=== PATIENT | female | born 2000 | race Caucasian/White ===

== ENCOUNTER → 2020-04-30 16:27 | Outpatient (CLI) | payer SELFPAY | PROVIDERS: Visit Provider Nurse Practitioner Family | DX: Z34.90 Encounter for supervision of normal pregnancy, unspecified, unspecified trimester (principal) | CPT/HCPCS: 36415; 86900; 86901 ==

== ENCOUNTER 2020-05-02 12:06 | Outpatient (CLI) | payer SELFPAY ==
[2020-05-02 14:51] VITALS: BP 133/72; PULSE 105; RESP 18; O2SAT 96
== END 2020-05-02 14:51 | disposition home or self-care (01) ==
LOC: LAB 12:07 → INF 14:34
PROVIDERS: Visit Provider Obstetrics & Gynecology
DX: Z34.90 Encounter for supervision of normal pregnancy, unspecified, unspecified trimester (principal)
CPT/HCPCS: 36415; 96372; J2790

== ENCOUNTER → 2020-09-18 08:48 | Outpatient (CLI) | payer SELFPAY ==
[2020-09-18 09:24] LABS: Alanine Aminotransferase 34 U/L (12-78); Albumin Level 4.9 g/dl (3.5-5.0); Albumin/Globulin Ratio 1.5 (1.1-1.8); Alkaline Phosphatase 78 U/L (38-126); Anion Gap 16.1 mEq/L (5-15); Aspartate Amino Transferase 33 U/L (14-36); Bilirubin,Total 0.8 mg/dl (0.2-1.3); Blood Urea Nitrogen 7 mg/dl (7-17); Calcium 9.6 mg/dl (8.4-10.2); Carbon Dioxide 25 mmol/L (22.0-30.0); Chloride 104 mmol/L (98-107); Estimated Glomerular Filt Rate 105 ml/min (>60); GFR (African American) 127 ML/MIN (>60); Globulin 3.2 g/dL (1.3-3.2); Glucose 87 mg/dl (74-100); Potassium 4.1 mmoL/L (3.5-5.1); Sodium 141 mmol/L (136-145); Total Protein,Serum 8.1 g/dl (6.3-8.2)
[2020-09-18 09:25] LABS: Basophils % 0.7 % (0.1-2.0); Eosinophils # 0.2 K/mm3 (0.0-0.4); Hematocrit 39.7 % (37.0-47.0); Hemoglobin 12.3 g/dL (12.2-16.2); Lymphocytes # 1.3 K/mm3 (0.7-4.5); Mean Corpuscular Hemoglobin 27.6 pg (27.0-31.2); Mean Corpuscular Volume 88.9 fl (81-99); Mean Platelet Volume 9.7 fl (7.4-10.4); Monocytes # 0.3 K/mm3 (0.1-1.0); Monocytes % 4.8 % (1.7-9.3); Neutrophils # 4.2 K/mm3 (1.8-7.8); Neutrophils % 70.5 % (37.0-80.0); Platelet Count 194 K/mm3 (142-424); Red Blood Count 4.47 M/mm3 (4.20-5.40); Red Cell Distribution Width 15.3 % (11.5-17.5)
[2020-09-18 09:40] LABS: T4 (Thyroxine) 7.6 ug/dl (5.53-11.0)
[2020-09-18 09:54] LABS: Thyroid Stimulating Hormone 0.24 uIU/mL (0.465-4.68)
== END ==
PROVIDERS: Visit Provider Nurse Practitioner Family
DX: R53.83 Other fatigue (principal); R59.9 Enlarged lymph nodes, unspecified; F41.9 Anxiety disorder, unspecified
CPT/HCPCS: 80053; 84436; 84443; 85025

== ENCOUNTER → 2020-09-25 10:01 | Outpatient (CLI) | payer SELFPAY | PROVIDERS: Visit Provider Nurse Practitioner Family | DX: B37.9 Candidiasis, unspecified (principal) | CPT/HCPCS: 87210 ==

== ENCOUNTER 2021-02-17 01:01 | Emergency (ER) | payer SELFPAY ==
[2021-02-17 01:02] VITALS: BP 138/93; PULSE 130; RESP 16; TEMP 36.6; O2SAT 99; BMI 30.7
[2021-02-17 01:27] LABS: Microscopic, Urine URINE MICROSCOPIC (MICROSCOPIC)
[2021-02-17 01:29] LABS: Appearance,Urine CLEAR (Clear); Bilirubin,Urine Negative (Negative); Blood, Urine Negative (Negative); Color,Urine YELLOW (Yellow); Glucose,Urine (UA) Negative (Negative); Ketones,Urine Negative (Negative); Leukocyte Esterase,Urine Negative (Negative); Nitrate,Urine Negative (Negative); Protein,Urine Negative (Negative); Specific Gravity, Urine <= 1.005 (1.005-1.030); Urobilinogen,Urine 0.2 EU/dl (0.2)
[2021-02-17 01:30] VITALS: BP 104/53; PULSE 96; O2SAT 98
[2021-02-17 01:36] LABS: Basophils % 0.5 % (0.1-2.0); Eosinophils # 0.6 K/mm3 (0.0-0.4); Eosinophils % 6.9 % (0.1-12.0); Hematocrit 39.6 % (37.0-47.0); Hemoglobin 13.4 g/dL (12.2-16.2); Lymphocytes # 1.7 K/mm3 (0.7-4.5); Lymphocytes % 20.2 % (10-50); Mean Corpuscular HGB Conc 33.9 g/dL (31.8-35.4); Mean Corpuscular Hemoglobin 29.2 pg (27.0-31.2); Mean Corpuscular Volume 86.3 fl (81-99); Mean Platelet Volume 9.1 fl (7.4-10.4); Monocytes # 0.3 K/mm3 (0.1-1.0); Monocytes % 3.1 % (1.7-9.3); Neutrophils # 5.8 K/mm3 (1.8-7.8); Neutrophils % 69.2 % (37.0-80.0); Platelet Count 153 K/mm3 (142-424); Red Blood Count 4.59 M/mm3 (4.20-5.40); Red Cell Distribution Width 14.7 % (11.5-17.5); White Blood Count 8.4 K/mm3 (4.8-10.8)
[2021-02-17 01:36] LABS: Bacteria,Urine 1+ /lpf; Squamous Epithelial Cell,Urine TNTC #/hpf (0-5)
[2021-02-17 01:42] LABS: Chloride 104 mmol/L (98-107); Sodium 139 mmol/L (136-145)
[2021-02-17 01:43] LABS: Potassium 3.3 mmoL/L (3.5-5.1)
[2021-02-17 01:45] LABS: Alanine Aminotransferase 23 U/L (12-78); Albumin Level 4.5 g/dl (3.5-5.0); Albumin/Globulin Ratio 1.5 (1.1-1.8); Alkaline Phosphatase 59 U/L (38-126); Anion Gap 12.3 mEq/L (5-15); Aspartate Amino Transferase 26 U/L (14-36); Bilirubin,Total 0.5 mg/dl (0.2-1.3); Blood Urea Nitrogen 4 mg/dl (7-17); Carbon Dioxide 26 mmol/L (22.0-30.0); Creatinine Clearance Estimated 238 mL/min (50-200); Estimated Glomerular Filt Rate 153 ml/min (>60); GFR (African American) 185 ML/MIN (>60); Globulin 3.1 g/dL (1.3-3.2); Total Protein,Serum 7.6 g/dl (6.3-8.2)
[2021-02-17 01:46] LABS: Calcium 9.4 mg/dl (8.4-10.2); Glucose 112 mg/dl (74-100)
--- NOTE | 2021-02-17 01:57 | HMH.EDGENADL ---
ED Disposition Clinical Impression: Chronic nasal congestion, Nasal congestion related to Sinusitis Qualifiers: Sinusitis location: maxillary Chronicity: chronic Qualified Code(s): J32.0 - Chronic maxillary sinusitis Qualifiers: Weeks of gestation: 12 weeks Qualified Code(s): Z3A.12 - 12 weeks gestation of Disposition: Home, Self-Care Condition on Discharge: Good Instructions: DI for Sinusitis Prescriptions: Cetirizine HCl [24Hour Allergy] 10 mg PO DAILY 30 Days #30 tab Transmission Status: Pending to [facility] Fluticasone Propionate [Flonase 50mcg nasal spray 16gm] 2 spr NS DAILY #1 bottle Transmission Status: Pending to [facility] Cefdinir [Omnicef 300mg Capsule] 300 mg PO BID #20 cap Transmission Status: Pending to [facility] Sodium Chloride [Saline Nasal Mist] 2 spray NS BID #1 mist Transmission Status: Pending to [facility] Referrals: Terra Fulton APRN [Primary Care Provider] - - Critical Care Critical Care Time: No Attestation: On 02/17/21, the high probability of a clinically significant, sudden or life threatening deterioration of the following system(s) required my full and direct attention, intervention and personal management. The time I documented below is in addition to time spent performing reported procedures but includes the following listed in this critical care notation. Medical Decision Making - Medical Records Medical records reviewed: Yes: I reviewed the patient's medical records. - Soham Inquiry Pt receiving controlled substance: No Vital Signs: 02/17/21 01:02 Temperature 97.9 F Temperature Source Oral Pulse Rate [Right] 130 H Respiratory Rate 16 Blood Pressure [Right Arm] 138/93 H Blood Pressure Mean [Right Arm] 108 02 Sat by Pulse Oximetry 99 - Lab Data Lab Results 02/17/21 01:23: Urine Color Yellow, Urine Appearance Clear, Urine pH 6.0, Ur Specific [place] <= 1.005, Urine Protein Negative, Urine Glucose (UA) Negative, Urine Ketones Negative, Urine Blood Negative, Urine Nitrate Negative, Urine Bilirubin Negative, Urine Urobilinogen 0.2, Ur Leukocyte Esterase Negative, Urine WBC 3-5, Ur Squamous Epith Cells Tntc, Urine Bacteria 1+ 02/17/21 01:29: WBC 8.4, RBC 4.59, Hgb 13.4, Hct 39.6, MCV 86.3, MCH 29.2, MCHC 33.9, RDW 14.7, Plt Count 153, MPV 9.1, Neut % (Auto) 69.2, Lymph % (Auto) 20.2, [place] % (Auto) 3.1, Eos % (Auto) 6.9, Baso % (Auto) 0.5, Neut # (Auto) 5.8, Lymph # (Auto) 1.7, [place] # (Auto) 0.3, Eos # (Auto) 0.6 H, Baso # (Auto) 0.0 02/17/21 01:29: Sodium 139, Potassium 3.3 L, Chloride 104, Carbon Dioxide 26, Anion Gap 12.3, BUN 4 L, Creatinine 0.50 L, Estimated Creat Clear 238, Estimated GFR 153, Est GFR ( Amer) 185, Glucose 112 H, Calcium 9.4, Total Bilirubin 0.5, AST 26, ALT 23, Alkaline Phosphatase 59, Total Protein 7.6, Albumin 4.5, Globulin 3.1, Albumin/Globulin Ratio 1.5 Result diagrams: 02/17/21 01:29 02/17/21 01:29 Orders (Tests/Meds): ED MEDICATIONS Generic Name Dose Route Start Last Admin Trade Name Freq PRN Reason Stop Dose Admin Sodium Chloride 1,000 mls @ 999 mls/hr 02/17/21 01:15 02/17/21 01:22 Sod Chlor 0.9% 1000ml Bag IV 02/17/21 02:15 999 mls/hr .Q1H1M JAQUI Administration Discontinued Medications Generic Name Dose Route Start Last Admin Trade Name Freq PRN Reason Stop Dose Admin Oxymetazoline HCl 1 ml 02/17/21 01:13 02/17/21 01:22 Oxymetazoline Nasal Spur 0.05% 15ml NS 02/17/21 01:14 1 ml ONCE ONE Administration Medical Decision Narrative: 21-year-old female who is otherwise healthy and 12 weeks who presents with nasal congestion for several months. Feels like the congestion is significantly worsening keeping her from sleeping. She used TheraFlu prior to arrival which she was counseled not to use going forward due to the phenylephrine and being in for trimester . She
[2021-02-17 02:18] VITALS: BP 111/77; PULSE 89; RESP 16; TEMP 36.6; O2SAT 99
== END 2021-02-17 02:19 | disposition home or self-care (01) ==
PROVIDERS: Emergency Provider Student in an Organized Health Care Education/Training Program; PCP Nurse Practitioner Family
DX: O99.891 Other specified diseases and conditions complicating pregnancy (principal); J32.0 Chronic maxillary sinusitis; Z3A.12 12 weeks gestation of pregnancy; F41.8 Other specified anxiety disorders
CPT/HCPCS: 80053; 81001; 85025; 96365; 99282

== ENCOUNTER 2021-08-07 19:20 | Emergency (ER) | payer SELFPAY ==
[2021-08-07 19:27] VITALS: BP 147/84; PULSE 129; RESP 22; TEMP 36.7; O2SAT 98; BMI 28.8
--- NOTE | 2021-08-07 19:41 | ECG_ITS ---
APPROVED REPORT Exam: Resting ECG HR:107 bpm ECG Measurements Heart Rate 107 AXES [place] 158 P 43 QRSd 86 QRS 63 QT 303 T 23 QTc 366 Conclusion SINUS TACHYCARDIA NONSPECIFIC T-WAVE ABNORMALITY ABNORMAL RHYTHM ECG UNCONFIRMED REPORT Electronically signed by : Hasmukh Bales MD 08/08/2021 13:45:51
--- NOTE | 2021-08-07 19:47 | XR_ITS ---
PROCEDURE INFORMATION: Exam: XR Chest Exam date and time: 08/07/2021 7:47 PM Age: 21 years old Clinical indication: Chest pressure; Patient HX: Chest pain , PT just had a baby yesterday and pain started while having the baby; Additional info: Chest pain; SOA TECHNIQUE: Imaging protocol: XR of the chest. Views: 1 view. COMPARISON: CR (CHEST AP, CHEST, CXR AP LANDSCAPE) 11/23/2018 1:24 PM FINDINGS: Lungs: Unremarkable. No consolidation. Pleural spaces: No pleural effusion. No pneumothorax. Heart/Mediastinum: Normal heart size. Bones/joints: Unremarkable. IMPRESSION: No acute findings.
--- NOTE | 2021-08-07 19:51 | HMH.EDGENADL ---
ED Disposition Condition on Discharge: Fair - Critical Care Critical Care Time: Yes Total Critical Care Time: 40 Vital system(s) involved:: Circulatory Failure, Respiratory Failure, Shock (Septic) My critical care processes included: Assessment & monitoring of V/S, Initial and Re-exams, Data Review/Interpretation, Coordinating Care, Medication Orders and management, Documentation Comment: Approximately 40 minutes was spent evaluating and reassessing the patient, considerations were given to toxin induced myopathy, pulmonary embolisms, septic shock, and peurpeural sepsis. <Susy Love - Last Filed: 08/07/21 20:44> Condition on Discharge: Good <Garett Joyner - Last Filed: 08/07/21 23:37> Clinical Impression: Tachycardia, complication Chest pain Qualifiers: Chest pain type: chest pain on breathing Qualified Code(s): R07.1 - Chest pain on breathing Disposition: Home, Self-Care Instructions: DI for Atypical Chest Pain Additional Instructions: fluids and return if any problems and see dr florence or pcp for follow up Referrals: Terra Fluton APRN [Primary Care Provider] - Attestation: On 08/07/21, the high probability of a clinically significant, sudden or life threatening deterioration of the following system(s) required my full and direct attention, intervention and personal management. The time I documented below is in addition to time spent performing reported procedures but includes the following listed in this critical care notation. Medical Decision Making - Medical Records Medical records reviewed: Yes: I reviewed the patient's medical records. - Soham Inquiry Pt receiving controlled substance: No - Lab Data Lab results reviewed: Yes: I reviewed the patient's lab results. Result diagrams: 08/07/21 19:45 08/07/21 19:45 <Susy Love - Last Filed: 08/07/21 20:44> - Lab Data Result diagrams: 08/07/21 19:45 08/07/21 19:45 - Radiology Data #1 Image(s): Chest Image Reviewed: Yes I have reviewed radiologist's interpretation Preliminary Findings: Normal/NAD - CT Data CT Scan: Chest Time Received: 23:[address] Reviewed: Yes: I have viewed the radiologist's interpretation Preliminary Findings: Normal/NAD - US Data US Images: Pelvis ED US Reviewed: Yes: I have viewed radiologist's interpretation Preliminary Findings: Normal/NAD - ECG Data Tracing #1 Arrhythmias present: sinus tach Ischemic changes: non-specific ST-T wave changes - Physician Consults Physician Consulted: ludivina Reason -: Pt condition <Garett Joyner - Last Filed: 08/07/21 23:37> Vital Signs: 08/07/21 19:27 08/07/21 20:04 08/07/21 20:30 Temperature 98.0 F Temperature Source Oral Pulse Rate 103 H 95 H Pulse Rate [Apical] 129 H Respiratory Rate 22 Blood Pressure 134/87 149/81 H Blood Pressure [Right Arm] 147/84 H Blood Pressure Mean [Right Arm] 105 Blood Pressure Source [Right Arm] Automatic Cuff Blood Pressure Position [Right Arm] Sitting 02 Sat by Pulse Oximetry 98 97 97 Oxygen Delivery Method Room Air Room Air Room Air 08/07/21 21:00 08/07/21 21:30 Temperature Temperature Source Pulse Rate 92 H 121 H Pulse Rate [Apical] Respiratory Rate Blood Pressure 139/84 122/90 Blood Pressure [Right Arm] Blood Pressure Mean [Right Arm] Blood Pressure Source [Right Arm] Blood Pressure Position [Right Arm] 02 Sat by Pulse Oximetry 96 96 Oxygen Delivery Method Room Air Room Air - Lab Data Lab Results 08/07/21 19:45: WBC 7.2, RBC 3.84 L, Hgb 12.0 L, Hct 37.1, MCV 96.6, MCH 31.1, MCHC 32.2, RDW 14.6, Plt Count 158, MPV 9.6, Neut % (Auto) 70.6, Lymph % (Auto) 19.4, [place] % (Auto) 5.1, Eos % (Auto) 3.5, Baso % (Auto) 1.3, Neut # (Auto) 5.1, Lymph # (Auto) 1.4, [place] # (Auto) 0.4, Eos # (Auto) 0.3, Baso # (Auto) 0.1 08/07/21 19:45: PT 9.8 L, INR 0.86 L, APTT 23.1 08/07/21 19:45: D-Dimer 1.07 H 08/07/21 19:45: Sodium 135 L, Potassium 3.6, Chloride 104,
[2021-08-07 20:03] LABS: Basophils # 0.1 K/mm3 (0-0.2); Basophils % 1.3 % (0.1-2.0); Eosinophils # 0.3 K/mm3 (0.0-0.4); Eosinophils % 3.5 % (0.1-12.0); Hematocrit 37.1 % (37.0-47.0); Lymphocytes # 1.4 K/mm3 (0.7-4.5); Lymphocytes % 19.4 % (10-50); Mean Corpuscular HGB Conc 32.2 g/dL (31.8-35.4); Mean Corpuscular Hemoglobin 31.1 pg (27.0-31.2); Mean Corpuscular Volume 96.6 fl (81-99); Mean Platelet Volume 9.6 fl (7.4-10.4); Monocytes # 0.4 K/mm3 (0.1-1.0); Monocytes % 5.1 % (1.7-9.3); Neutrophils # 5.1 K/mm3 (1.8-7.8); Neutrophils % 70.6 % (37.0-80.0); Platelet Count 158 K/mm3 (142-424); Red Blood Count 3.84 M/mm3 (4.20-5.40); Red Cell Distribution Width 14.6 % (11.5-17.5); White Blood Count 7.2 K/mm3 (4.8-10.8)
[2021-08-07 20:04] VITALS: BP 134/87; PULSE 103; O2SAT 97
[2021-08-07 20:11] LABS: Alanine Aminotransferase 64 U/L (12-78); Albumin Level 3.3 g/dl (3.5-5.0); Albumin/Globulin Ratio 1.2 (1.1-1.8); Alkaline Phosphatase 116 U/L (38-126); Anion Gap 5.6 mEq/L (5-15); Aspartate Amino Transferase 49 U/L (14-36); Bilirubin,Total 0.4 mg/dl (0.2-1.3); Blood Urea Nitrogen 8 mg/dl (7-17); Calcium 8.8 mg/dl (8.4-10.2); Carbon Dioxide 29 mmol/L (22.0-30.0); Chloride 104 mmol/L (98-107); Creatinine Clearance Estimated 224 mL/min (50-200); Estimated Glomerular Filt Rate 153 ml/min (>60); GFR (African American) 185 ML/MIN (>60); Globulin 2.7 g/dL (1.3-3.2); Glucose 103 mg/dl (74-100); Magnesium 1.4 mg/dl (1.6-2.3); Phosphorous 4.3 mg/dl (2.5-4.5); Potassium 3.6 mmoL/L (3.5-5.1); Sodium 135 mmol/L (136-145)
[2021-08-07 20:13] LABS: Activated Partial Thrombo Time 23.1 seconds (22.8-30.6); INR 0.86 (0.9-1.1); Prothrombin Time 9.8 seconds (10.1-12.5)
[2021-08-07 20:21] LABS: D-Dimer 1.07 ug/mL (0.0-0.5)
[2021-08-07 20:23] LABS: Troponin I < 0.01 ng/ml (0.00-0.034)
[2021-08-07 20:30] VITALS: BP 149/81; PULSE 95; O2SAT 97
--- NOTE | 2021-08-07 20:38 | CT_ITS ---
PROCEDURE INFORMATION: Exam: CTA Chest With Contrast Exam date and time: 08/07/2021 8:38 PM Age: 21 years old Clinical indication: Sternal or substernal pain; Additional info: Elevated d-dimer; Tachycardia; Chest pain, PT is 36 hours post TECHNIQUE: Imaging protocol: Computed tomographic angiography of the chest with contrast. 3D rendering (Not supervised by radiologist): MIP and/or 3D reconstructed images were created by the technologist. Radiation optimization: All CT scans at this facility use at least one of these dose optimization techniques: automated exposure control; mA and/or kV adjustment per patient size (includes targeted exams where dose is matched to clinical indication); or iterative reconstruction. Contrast material: ISOVUE 370; Contrast volume: 70 ml; Contrast route: INTRAVENOUS (IV); COMPARISON: CR XR CHEST PORTABLE 08/07/2021 7:57 PM FINDINGS: Pulmonary arteries: No pulmonary emboli. Aorta: No thoracic aortic aneurysm or dissection. Lungs: Minimal dependent atelectasis. No consolidation. No evidence of pneumonia. There are a few scattered pulmonary nodules measuring up to 4 mm in size, presumably benign/reactive in this young patient (no follow-up recommended). Pleural spaces: No pneumothorax. No pleural effusion. Heart: No cardiomegaly. No pericardial effusion. Lymph nodes: Unremarkable. No enlarged lymph nodes. Diaphragm: Small hiatal hernia. Spleen: Partially visualized spleen is enlarged, measuring greater than 13 cm in AP dimension. Bones/joints: Unremarkable. No acute fracture. Soft tissues: Unremarkable. IMPRESSION: 1. No evidence of pulmonary embolus. 2. No acute finding within the thorax. No pneumonia. 3. Nonspecific splenomegaly.
[2021-08-07 20:42] LABS: Thyroid Stimulating Hormone 3.36 uIU/mL (0.465-4.68)
--- NOTE | 2021-08-07 20:43 | US_ITS ---
PROCEDURE INFORMATION: Exam: US Pelvis, Transvaginal Exam date and time: 08/07/2021 8:43 PM Age: 21 years old Clinical indication: Pelvic pain; Additional info: Eval for retained poc; 36h post- TECHNIQUE: Imaging protocol: Real-time transvaginal pelvic ultrasound with image documentation. Transvaginal imaging was used for better evaluation of the endometrium, adnexa, and/or cervix. COMPARISON: ABDPELW/O CT ABD PELVIS W/O CONTRAST 12/22/2016 9:03 AM FINDINGS: Uterus: Uterus measures 13.0 x 7.9 x 11.0 cm, compatible with recent gravid state. Heterogeneous endometrial tissue measuring up to 1.1 cm in thickness. Color flow evaluation of the endometrial tissue not performed. Right ovary/adnexa: Right ovary measures 3.7 x 1.6 x 2.8 cm. Normal color flow present. Left ovary/adnexa: Left ovary measures 4.0 x 2.0 x 2.4 cm. Normal color flow seen within left ovary. Intraperitoneal space: No free fluid is seen in the pelvis. IMPRESSION: Early post-gravid appearance of the uterus. Heterogeneous endometrial tissue is present, measuring up to 1.1 cm in thickness, the exact significance of which is uncertain given delivery only 36 hours prior (ongoing passage of tissue expected in the early phase). Advise a short-term follow-up study within 5-7 days to see if the endometrial tissue resolves.
[2021-08-07 20:44] LABS: Fibrinogen 403 mg/dL (229.9-363.5); Uric Acid 3.2 mg/dl (2.5-6.2)
[2021-08-07 20:48] LABS: Free T4 (Free Thyroxine) 0.91 ng/dl (0.78-2.19)
[2021-08-07 21:00] VITALS: BP 139/84; PULSE 92; O2SAT 96
[2021-08-07 21:04] LABS: C-Reactive Protein 11.3 mg/L (0-4)
[2021-08-07 21:14] LABS: Erythrocyte Sedimentation Rate 48 mm/hr (0-20)
[2021-08-07 21:18] LABS: Procalcitonin 0.044 ng/mL (0.0-2.0)
[2021-08-07 21:30] VITALS: BP 122/90; PULSE 121; O2SAT 96
--- NOTE | 2021-08-07 23:31 | PC.NURSE ---
timothy on phone with dr florence @ this time
--- NOTE | 2021-08-07 23:33 | PC.NURSE ---
on phone consulting with regarding patient condition.
[2021-08-07 23:41] VITALS: BP 115/84; PULSE 94; RESP 20; TEMP 36.7; O2SAT 96
[2021-08-09 08:19] LABS: Homocyst(e)ine 4.6 umol/L (0.0-14.5)
--- NOTE | 2021-08-09 09:44 | PC.NURSE ---
Attempted to call all numbers listed in patient's chart per Dr. Joyner's request related to her prelim positive blood culture results. No one answered at any of the numbers listed. Notified Dr. Joyner
[2021-08-10 15:11] LABS: Anti-Thrombin III Antigen 71 % (72-124); Antithrombin Activity 106 % (75-135); Factor VIII Activity 171 % (56-140); Protein C Functional 157 % (73-180); Protein S, Free 70 % (61-136); Protein S, Total 54 % (60-150); Protein S-Functional 46 % (63-140)
[2021-08-12 04:03] LABS: Protein C Antigen 120 % (60-150)
== END 2021-08-07 23:43 | disposition home or self-care (01) ==
PROVIDERS: Emergency Medicine; Emergency Provider Emergency Medicine; PCP Nurse Practitioner Family
DX: O86.04 Sepsis following an obstetrical procedure (principal); A40.1 Sepsis due to streptococcus, group B; R07.1 Chest pain on breathing; R06.02 Shortness of breath; R00.0 Tachycardia, unspecified; F41.8 Other specified anxiety disorders
CPT/HCPCS: 71045; 71275; 76830; 80053; 81241; 83090; 83735; 84100; 84145; 84439; 84443; 84484; 84550; 85025; 85240; 85300; 85301; 85302; 85305; 85306; 85378; 85384; 85610; 85651; 85730; 86140; 86148; 87040; 87077; 87186; 93005; 96365; 96375; 99283; Q9967

== ENCOUNTER 2021-08-10 15:38 | Outpatient (CLI) | payer SELFPAY ==
[2021-08-10 15:55] VITALS: BP 154/62; PULSE 81; RESP 18; TEMP 37.1; O2SAT 96
[2021-08-10 16:25] VITALS: BP 133/68; PULSE 80; RESP 18; O2SAT 97
[2021-08-10 16:55] VITALS: BP 130/71; PULSE 80; RESP 18; O2SAT 97
[2021-08-10 17:40] VITALS: BP 126/79; PULSE 76; RESP 18; O2SAT 98
== END 2021-08-10 17:47 | disposition home or self-care (01) ==
LOC: INF 15:39
PROVIDERS: PCP Nurse Practitioner Family; Visit Provider Nurse Practitioner Obstetrics & Gynecology
DX: R10.30 Lower abdominal pain, unspecified (principal)
CPT/HCPCS: 96365; J1956

== ENCOUNTER 2021-08-12 12:48 | Observation (INO) | payer SELFPAY ==
[2021-08-12 13:01] VITALS: BMI 32.4
[2021-08-12 13:39] LABS: Coronavirus 19, PCR Not Detected (NotDetected); Influenza A, PCR Not Detected (NotDetected); Influenza B, PCR Not Detected (NotDetected)
--- NOTE | 2021-08-12 14:01 | HMH.HP ---
*Admission Date: 08/12/21 *Chief complaint: Feeling unwell . Diarrhea *History of present illness: She is a 21-year-old 3 para 3 who is about a week now. She was seen in the ER 2 days and was found to be slightly tachycardic and feeling unwell. She had complained of some chest pain and lower abdominal pain. She had been worked up for a pulmonary embolus which was negative she did have blood cultures drawn and they have subsequently grown out Streptococcus. It is sensitive to clindamycin. She has been on Levaquin for the last 48 hours. She received 1 dose of IV antibiotics followed by oral antibiotics. She says that she still just feels unwell despite this. She has had diarrhea for the last 24 hours and she thinks it might be as result of the antibiotics. She says she just feels puny. She is breast-feeding. [facility] History I have reviewed the patient's past medical history: Yes Medical History: Reports:: Anxiety, Depression, Seizures *Have you ever received a pneumonia vaccine?: No *Have you received a flu vaccine this season?: No Other Surgeries: Yes: No Previous Surgery Amputation: No Fractures: No - *Social History Smoking Status: Never smoker Alcohol Intake: never Alcohol Intake Frequency:: other Substance Use Type: denies use *Occupational Status:: unemployed Housing: house Household Members: spouse, children *Travel in the last 8 weeks: None - Psychiatric History Pschychiatric History:: Reports:: Anxiety, Depression Family Hx:: No significant family history Review of Systems - Review of Systems Review of systems:: pertinent systems reviewed and negative unless documented below Meds Home Medications Medication Instructions Recorded Confirmed Type Sertraline HCl [Zoloft] 25 mg PO DAILY 08/10/21 08/12/21 History levoFLOXacin [Levofloxacin] 500 mg PO DAILY 08/10/21 08/12/21 History Allergies Allergy/AdvReac Type Severity Reaction Status Date / Time trazodone [TRAZODONE] Allergy Intermediate Verified 08/12/21 11:43 Exam I & O for Last 24 hours: Intake & Output 08/10/21 08/11/21 08/12/21 08/13/21 11:59 11:59 11:59 11:59 Weight 201 lb - Constitutional no acute distress - *Routine HEENT Exam Head: Present: normocephalic Eye: Present: EOMI, PERRL ENT: Present: mucous membranes moist - *Routine Neck Exam Present: supple, full ROM - *Routine Respiratory Exam Absent: accessory muscle use (good air entry bilaterally), wheezes, crackles - *Routine Cardiovascular Exam Present: RRR. Absent: murmur - *Routine Abdominal Exam Present: soft, normoactive bowel sounds. Absent: tenderness, rebound, guarding, mass - *Routine Rectal Exam Rectal:: deferred - *Routine Genitalia Exam Genitalia:: deferred - *Routine Extremities Exam Present: full ROM. Absent: cyanosis, edema, calf tenderness - *Routine Skin Exam Present: intact (good color) - *Routine Neurological Exam Present: alert, oriented X3 - Routine Psychiatric Exam Present: normal affect - Detailed Rectal Exam Patient deferred: visual exam, digital exam - Detailed Exam Patient deferred: external exam, groin exam, perineal exam Assessment and Plan (1) Streptococcus infection Status: Acute Category: Medical Code(s): A49.1 - Streptococcal infection, unspecified site (2) Tachycardia Status: Acute Category: Medical Code(s): R00.0 - Tachycardia, unspecified - Assessment and plan all Dx Assessment and Plan for all problems:: She has lost some weight in the last few days. She has diarrhea. She is somewhat dehydrated I believe. We will go ahead and admit her and start some IV fluids. Her strep in her blood is sensitive to clindamycin so we will start this. We will give her Imodium for diarrhea. We will check her blood counts as well as her electrolytes. We will plan to admit her at least overnight. I have spoken with the Terra Fulton and she will see the angela
[2021-08-12 14:23] LABS: Basophils % 0.6 % (0.1-2.0); Eosinophils # 0.1 K/mm3 (0.0-0.4); Hematocrit 36.8 % (37.0-47.0); Hemoglobin 11.9 g/dL (12.2-16.2); Lymphocytes # 1.1 K/mm3 (0.7-4.5); Lymphocytes % 15.6 % (10-50); Mean Corpuscular HGB Conc 32.4 g/dL (31.8-35.4); Mean Corpuscular Hemoglobin 30.5 pg (27.0-31.2); Mean Corpuscular Volume 94.1 fl (81-99); Mean Platelet Volume 9.5 fl (7.4-10.4); Monocytes # 0.3 K/mm3 (0.1-1.0); Monocytes % 4.1 % (1.7-9.3); Neutrophils # 5.3 K/mm3 (1.8-7.8); Neutrophils % 77.8 % (37.0-80.0); Platelet Count 185 K/mm3 (142-424); Red Blood Count 3.91 M/mm3 (4.20-5.40); Red Cell Distribution Width 14.3 % (11.5-17.5); White Blood Count 6.9 K/mm3 (4.8-10.8)
[2021-08-12 14:28] LABS: Chloride 106 mmol/L (98-107)
[2021-08-12 14:29] LABS: Potassium 3.9 mmoL/L (3.5-5.1); Sodium 137 mmol/L (136-145)
[2021-08-12 14:31] LABS: Alanine Aminotransferase 37 U/L (12-78); Aspartate Amino Transferase 49 U/L (14-36); Blood Urea Nitrogen 9 mg/dl (7-17); Creatinine Clearance Estimated 210 mL/min (50-200); Estimated Glomerular Filt Rate 124 ml/min (>60); GFR (African American) 150 ML/MIN (>60)
[2021-08-12 14:32] LABS: Albumin Level 3.6 g/dl (3.5-5.0); Albumin/Globulin Ratio 1.2 (1.1-1.8); Alkaline Phosphatase 90 U/L (38-126); Anion Gap 9.9 mEq/L (5-15); Bilirubin,Total 0.6 mg/dl (0.2-1.3); Calcium 8.6 mg/dl (8.4-10.2); Carbon Dioxide 25 mmol/L (22.0-30.0); Globulin 2.9 g/dL (1.3-3.2); Glucose 108 mg/dl (74-100); Total Protein,Serum 6.5 g/dl (6.3-8.2)
[2021-08-12 15:34] VITALS: BP 118/62; PULSE 96; RESP 18; TEMP 36.6; O2SAT 98
[2021-08-12 15:36] LABS: C-Reactive Protein 15.8 mg/L (0-4)
--- NOTE | 2021-08-12 15:42 | PC.NURSE ---
Admission assessment complete. Pt resting quietly in bed with and baby at bs. Baby asleep in crib. Denies any needs at this time. Denies any pain. Was able to collect and send stool specimen for testing. IV infusing at 150ml/hr via pump. Denies any needs or questions at this time.
[2021-08-12 15:49] LABS: Procalcitonin < 0.030 ng/mL (0.0-2.0)
[2021-08-12 15:50] LABS: Adenovirus F 40/41, stool Not Detected (NotDetected); Astrovirus Not Detected (NotDetected); Campylobacter Not Detected (NotDetected); Clostridium Difficile A/B, PCR Not Detected (NotDetected); Cryptosporidium Not Detected (NotDetected); Cyclospora Cayetanesis Not Detected (NotDetected); Entamoeba histolytica Not Detected (NotDetected); Enteroaggregative E coli Not Detected (NotDetected); Enteropathogenic E coli Not Detected (NotDetected); Enterotoxigenic E coli Not Detected (NotDetected); Giardia lamblia Not Detected (NotDetected); Norovirus Not Detected (NotDetected); Plesimonas Shigalloides, PCR Not Detected (NotDetected); Rotavirus A Not Detected (NotDetected); Salmonella, PCR Not Detected (NotDetected); Sapovirus Not Detected (NotDetected); Shiga-like toxin E coli Not Detected (NotDetected); Shigella Enterovasive E coli Not Detected (NotDetected); Vibrio Cholerae Not Detected (NotDetected); Vibrio, PCR Not Detected (NotDetected); Yersinia Entercolitica, PCR Not Detected (NotDetected)
[2021-08-12 15:53] LABS: Erythrocyte Sedimentation Rate 41 mm/hr (0-20)
--- NOTE | 2021-08-12 19:21 | PC.NURSE ---
Report to LEANN Wallace.
[2021-08-12 20:00] VITALS: BP 119/65; PULSE 103; RESP 18; TEMP 36.8; O2SAT 98
[2021-08-13 03:29] VITALS: BP 127/73; PULSE 74; RESP 16; TEMP 37; O2SAT 98
--- NOTE | 2021-08-13 05:13 | PC.NURSE ---
Pt has rested comfortably this shift, BLT lungs CTA, bowel sounds present in all 4 quadrants, pt is on Ra, IV patent and infusing well, pt reports no loose bowel movements tonight. Pt reports feeling a little bit better. Pt denies headache, SOA, N/V, or any pain. VSS
[2021-08-13 07:33] LABS: Basophils % 0.5 % (0.1-2.0); Eosinophils # 0.2 K/mm3 (0.0-0.4); Eosinophils % 4.7 % (0.1-12.0); Hematocrit 35.6 % (37.0-47.0); Hemoglobin 11.6 g/dL (12.2-16.2); Lymphocytes # 1.3 K/mm3 (0.7-4.5); Lymphocytes % 26.1 % (10-50); Mean Corpuscular HGB Conc 32.5 g/dL (31.8-35.4); Mean Corpuscular Hemoglobin 30.5 pg (27.0-31.2); Monocytes # 0.3 K/mm3 (0.1-1.0); Monocytes % 5.1 % (1.7-9.3); Neutrophils # 3.3 K/mm3 (1.8-7.8); Neutrophils % 63.7 % (37.0-80.0); Platelet Count 178 K/mm3 (142-424); Red Blood Count 3.79 M/mm3 (4.20-5.40); Red Cell Distribution Width 14.2 % (11.5-17.5); White Blood Count 5.1 K/mm3 (4.8-10.8)
[2021-08-13 07:53] LABS: Anion Gap 7.7 mEq/L (5-15); Blood Urea Nitrogen 9 mg/dl (7-17); Calcium 8.3 mg/dl (8.4-10.2); Carbon Dioxide 27 mmol/L (22.0-30.0); Chloride 106 mmol/L (98-107); Creatinine Clearance Estimated 210 mL/min (50-200); Estimated Glomerular Filt Rate 124 ml/min (>60); GFR (African American) 150 ML/MIN (>60); Glucose 91 mg/dl (74-100); Potassium 3.7 mmoL/L (3.5-5.1); Sodium 137 mmol/L (136-145)
[2021-08-13 08:00] VITALS: BP 135/74; PULSE 77; RESP 18; TEMP 36.8; O2SAT 99
--- NOTE | 2021-08-13 09:10 | HMH.DCSUM ---
General - General Admission date:: 08/12/21 Discharge date: 08/13/21 HPI HPI: She is a 21-year-old 3 para 3 who is about a week now. She was seen in the ER 2 days and was found to be slightly tachycardic and feeling unwell. She had complained of some chest pain and lower abdominal pain. She had been worked up for a pulmonary embolus which was negative she did have blood cultures drawn and they have subsequently grown out Streptococcus. It is sensitive to clindamycin. She has been on Levaquin for the last 48 hours. She received 1 dose of IV antibiotics followed by oral antibiotics. She says that she still just feels unwell despite this. She has had diarrhea for the last 24 hours and she thinks it might be as result of the antibiotics. She says she just feels puny. She is breast-feeding. Hospital Course Hospital Course: She was admitted and given some IV fluids. She has done well over the last 24 hours. She denies any fever or chills. Her blood counts are normal. She is not tachycardic. She denies any chest pain or shortness of breath. She still has some slight uterine tenderness but it is much better than it was. We have been giving her IV clindamycin. She was seen by Dr. Melendez and Terra Fulton and they agree that she can be discharged home. She does have some help at home. She is Bah[place]. We will give her a prescription for clindamycin 300 mg 3 times daily since she was having problems with the Levaquin. The culture from her blood showed that the Streptococcus para sanguinous was sensitive to clindamycin. She will follow up with Dr. Melendez and with me if she has any further problems. I have encouraged her to continue with her vitamins and iron tablets. Her condition on discharge is stable and improved. Objective Vital signs: Temp Pulse Resp BP Pulse Ox 98.2 F 77 18 135/74 99 08/13/21 08:00 08/13/21 08:00 08/13/21 08:00 08/13/21 08:00 08/13/21 08:00 no acute distress - *Routine HEENT Exam Head: Present: normocephalic Eye: Present: EOMI, PERRL ENT: Present: mucous membranes moist - *Routine Neck Exam Present: supple - *Routine Respiratory Exam Present: CTA bilaterally - *Routine Cardiovascular Exam Present: RRR - *Routine Abdominal Exam Present: soft, normoactive bowel sounds. Absent: tenderness - *Routine Extremities Exam Absent: cyanosis, clubbing, edema Results Labs on day of discharge: Labs from last 24 hours 08/13/21 08/13/21 08/12/21 07:17 07:17 15:40 WBC 5.1 D RBC 3.79 L Hgb 11.6 L Hct 35.6 L MCV 94.0 MCH 30.5 MCHC 32.5 RDW 14.2 Plt Count 178 MPV 9.0 Neut % (Auto) 63.7 Lymph % (Auto) 26.1 [place] % (Auto) 5.1 Eos % (Auto) 4.7 Baso % (Auto) 0.5 Neut # (Auto) 3.3 Lymph # (Auto) 1.3 [place] # (Auto) 0.3 Eos # (Auto) 0.2 Baso # (Auto) 0.0 ESR Sodium 137 Potassium 3.7 Chloride 106 Carbon Dioxide 27 Anion Gap 7.7 BUN 9 Creatinine 0.60 Estimated Creat Clear 210 Estimated GFR 124 Est GFR ( Amer) 150 Glucose 91 Calcium 8.3 L Total Bilirubin AST ALT Alkaline Phosphatase C-Reactive Protein Total Protein Albumin Globulin Albumin/Globulin Ratio Procalcitonin Stl Aeromonas (PCR) Not detected Stl C. cayetanensis PCR Not detected Stool Rotavirus (PCR) Not detected Stl Adenov F 40/41 PCR Not detected Stool Astrovirus (PCR) Not detected Stool Campylobacter PCR Not detected Stl C.difficile Tox PCR Not detected Stool Cryptosporidium PCR Not detected Stl E.coli Shiga Tox PCR Not detected Stool E coli O157 PCR Not detected Stl Enterotoxigenic E PCR Not detected Stool EPEC (PCR) Not detected Stool EAEC (PCR) Not detected Stl E. histolytica PCR Not detected Stool Giardia Lamblia PCR Not detected Stool Salmonella PCR Not detected Sto
--- NOTE | 2021-08-13 09:41 | PC.NURSE ---
0940 Discharge education provided to pt, questions encouraged and answered.
--- NOTE | 2021-08-13 09:47 | HMH.CONS ---
*Admission Date: 08/12/21 *Reason for consult:: blood stream infection *History of present illness: 21 yr old female presented to [facility] office after being seen in ed a couple days , now is a week . Pt had a healthy baby girl at home with a technology director. She was seen in the ER 2 days and was found to be slightly tachycardic and feeling unwell. She had complained of some chest pain and lower abdominal pain.She had been worked up for a pulmonary embolus which was negative she did have blood cultures drawn and they have subsequently grown out Streptococcus. It is sensitive to clindamycin. She has been on Levaquin for the last 48 hours but was not able to tolerate due to nausea and vomiting. She received 1 dose of IV Levaquin antibiotics followed by oral Levaquin. She says that she still just feels unwell despite this. She has had diarrhea for the last 24 hours and she thinks it might be as result of the antibiotics. She says she just feels puny. She is breast-feeding. Pt was admitted for iv fluids and change in antibiotics and monitoring. This am pt states she is feeling better just a little tired. labs wnl and pt able to eat and drink well. pt states she has help at home and feels well enough to go home. ok to dc from pcp point [facility] History I have reviewed the patient's past medical history: Yes Medical History: Reports:: Anxiety, Depression, Seizures *Have you ever received a pneumonia vaccine?: No *Have you received a flu vaccine this season?: No Other Surgeries: Yes: No Previous Surgery Amputation: No Fractures: No - *Social History Smoking Status: Never smoker Alcohol Intake: never Alcohol Intake Frequency:: other Substance Use Type: denies use *Occupational Status:: unemployed Housing: house Household Members: spouse, children *Travel in the last 8 weeks: None - Psychiatric History Pschychiatric History:: Reports:: Anxiety, Depression Family Hx:: No significant family history Review of Systems - Review of Systems Review of systems:: pertinent systems reviewed and negative unless documented below - Constitutional Reports fatigue, Denies body ache(s), Denies fever(s), Denies weakness, Denies weight gain - Eyes Denies change in vision - ENT Denies dizziness - *Cardiovascular Denies chest pain at rest - *Respiratory Denies chest congestion - *Gastrointestinal Denies abdominal pain, Denies nausea, Denies vomiting - *Genitourinary Denies urinary urgency - *Musculoskeletal Denies joint pain - Integumentary/Breasts Denies rash - *Neurologic Reports weakness, Denies dizziness, Denies headache(s), Denies numbness - Psychiatric Denies lack of enjoyment - Endocrine Denies flushing - Hematologic/Lymphatic Denies easy bruising - Allergic/Immunologic Denies itchy eyes Meds Home Medications Medication Instructions Recorded Confirmed Type Sertraline HCl [Zoloft] 25 mg PO DAILY 08/10/21 08/12/21 History clindamycin HCL [Clindamycin HCl] 300 mg PO TID #24 cap 08/13/21 Rx Allergies Allergy/AdvReac Type Severity Reaction Status Date / Time trazodone [TRAZODONE] Allergy Intermediate Verified 08/12/21 11:43 Exam Vital signs and Labs for Last 24 Hours: Temp Pulse Resp BP Pulse Ox 98.2 F 77 18 135/74 99 08/13/21 08:00 08/13/21 08:00 08/13/21 08:00 08/13/21 08:00 08/13/21 08:00 Laboratory Results - last 24 hr 08/12/21 13:15: WBC 6.9, RBC 3.91 L, Hgb 11.9 L, Hct 36.8 L, MCV 94.1, MCH 30.5, MCHC 32.4, RDW 14.3, Plt Count 185, MPV 9.5, Neut % (Auto) 77.8, Lymph % (Auto) 15.6, Benson % (Auto) 4.1, Eos % (Auto) 2.0, Baso % (Auto) 0.6, Neut # (Auto) 5.3, Lymph # (Auto) 1.1, Benson # (Auto) 0.3, Eos # (Auto) 0.1, Baso # (Auto) 0.0 08/12/21 13:15: Sodium 137, Potassium 3.9, Chloride 106, Carbon Dioxide 25, Anion Gap 9.9, BUN 9, Creatinine 0.60, Estimated Creat Clear 210, Estimated GFR 124, Est GFR ( Amer) 150, Glucose 108 H, Calcium 8.6, Total Bilirubin
== END 2021-08-13 09:45 | disposition home or self-care (01) ==
PROVIDERS: Admitting Provider Nurse Practitioner Obstetrics & Gynecology; PCP Nurse Practitioner Family; Visit Provider Nurse Practitioner Obstetrics & Gynecology
DX: O99.893 Other specified diseases and conditions complicating puerperium (principal); R78.81 Bacteremia; E86.9 Volume depletion, unspecified; B95.1 Streptococcus, group B, as the cause of diseases classified elsewhere; B95.4 Other streptococcus as the cause of diseases classified elsewhere; O99.43 Diseases of the circulatory system complicating the puerperium; Z20.822 Contact with and (suspected) exposure to COVID-19
CPT/HCPCS: 36415; 80048; 80053; 84145; 85025; 85651; 86140; 87507; C9803; G0378; U0003; U0005

== ENCOUNTER 2022-07-29 23:32 | Outpatient (CLI) | payer SELFPAY ==
[2022-07-29 23:36] VITALS: BMI 32.3
[2022-07-30 00:04] LABS: Microscopic, Urine URINE MICROSCOPIC (MICROSCOPIC)
[2022-07-30 00:16] LABS: Appearance,Urine CLEAR (Clear); Bilirubin,Urine Negative (Negative); Blood, Urine Negative (Negative); Color,Urine YELLOW (Yellow); Glucose,Urine (UA) Negative (Negative); Ketones,Urine TRACE (Negative); Leukocyte Esterase,Urine 1+ (Negative); Nitrate,Urine Negative (Negative); Protein,Urine Negative (Negative); Urobilinogen,Urine 0.2 EU/dl (0.2)
[2022-07-30 00:28] LABS: Barbiturates Screen,Urine Negative ng/ml (<200)
[2022-07-30 00:29] LABS: Benzodiazepines Screen,Urine Negative ng/ml (<200)
[2022-07-30 00:30] LABS: Amphetamine/Metha Screen,Urine Negative ng/ml (<1000); Cannabinoid Screen,Urine Negative ng/ml (<50)
[2022-07-30 00:31] LABS: Cocaine Screen,Urine Negative ng/ml (<300); Methadone Screen,Urine Negative ng/ml (<300)
[2022-07-30 00:32] LABS: Opiate Screen,Urine Negative ng/ml (<300)
[2022-07-30 00:33] LABS: Phencyclidine Screen,Urine Negative ng/ml (<25)
== END 2022-07-30 00:54 | disposition home or self-care (01) ==
LOC: OBOUT 23:33 → OB 23:33
PROVIDERS: PCP Family Medicine; Visit Provider Nurse Practitioner Obstetrics & Gynecology
DX: O47.03 False labor before 37 completed weeks of gestation, third trimester (principal); Z3A.28 28 weeks gestation of pregnancy
CPT/HCPCS: 59025; 80305; 81001; 87086

== ENCOUNTER 2022-07-31 08:56 | Outpatient (CLI) | payer SELFPAY ==
[2022-07-31 09:19] VITALS: BMI 32.9
[2022-07-31 09:57] VITALS: BP 118/67; PULSE 103; RESP 16; TEMP 36.8; O2SAT 98; BMI 32.9
[2022-07-31 10:46] LABS: Microscopic, Urine URINE MICROSCOPIC (MICROSCOPIC)
[2022-07-31 10:48] LABS: Appearance,Urine CLEAR (Clear); Bilirubin,Urine Negative (Negative); Blood, Urine Negative (Negative); Color,Urine YELLOW (Yellow); Glucose,Urine (UA) Negative (Negative); Ketones,Urine Negative (Negative); Leukocyte Esterase,Urine 1+ (Negative); Nitrate,Urine Negative (Negative); Protein,Urine Negative (Negative); Specific Gravity, Urine <= 1.005 (1.005-1.030); Urobilinogen,Urine 0.2 EU/dl (0.2)
[2022-07-31 10:56] LABS: Bacteria,Urine Trace /lpf
[2022-07-31 11:00] LABS: Amphetamine/Metha Screen,Urine Negative ng/ml (<1000)
[2022-07-31 11:01] LABS: Barbiturates Screen,Urine Negative ng/ml (<200)
[2022-07-31 11:02] LABS: Cannabinoid Screen,Urine Negative ng/ml (<50)
[2022-07-31 11:03] LABS: Cocaine Screen,Urine Negative ng/ml (<300); Methadone Screen,Urine Negative ng/ml (<300)
[2022-07-31 11:04] LABS: Opiate Screen,Urine Negative ng/ml (<300); Phencyclidine Screen,Urine Negative ng/ml (<25)
[2022-07-31 11:11] LABS: Benzodiazepines Screen,Urine Negative ng/ml (<200)
--- NOTE | 2022-07-31 11:13 | US_ITS ---
PROCEDURE INFORMATION: Exam: US After First Trimester, Transabdominal Exam date and time: 07/31/2022 12:43 PM Age: 22 years old Clinical indication: Other: Lbp, rufus flank pain, abd pain; Gestational age or lmp: 29weeks; ; Additional info: Low back and low abdominal pain, bilat flank pain TECHNIQUE: Imaging protocol: Real-time transabdominal obstetrical ultrasound of the maternal pelvis and a second or third trimester with image documentation. Total images: 422 COMPARISON: ABDPELW/O CT ABD PELVIS W/O CONTRAST 12/22/2016 9:03 AM FINDINGS: Gestation: Single living intrauterine gestation. heart rate: heart rate recorded to be 155 bpm. presentation: Breech presentation. Placenta: Anterior placenta grade 1. Amniotic fluid: Amniotic fluid is normal for gestational age. Amniotic fluid index: MAXI is 11.4 cm. BIOMETRY: Gestational age (AUA): Average gestational age 28 weeks 3 days. Estimated due date (AUA): Estimated date of delivery 10/20/2022. Estimated weight: Estimated weight 1239 g. Estimated weight percentile: Estimated weight percentile (LMP) 21%. Biparietal diameter (BPD): BPD 6.8 cm, 27 weeks 4 days Head circumference (HC): HC 26.1 cm, 28 weeks 3 days Abdominal circumference (AC): AC 24.3 cm, 28 weeks 5 days Femur length (FL): FL 5.4 cm, 28 weeks 5 days MATERNAL: Uterus: Unremarkable. Cervix: Cervical length 3.6 cm. Right ovary/adnexa: Obscured by lack of adequate acoustic window. Left ovary/adnexa: Obscured by lack of adequate acoustic window. Intraperitoneal space: No intraperitoneal free fluid. IMPRESSION: 1. Single living intrauterine gestation. 2. Average gestational age 28 weeks 3 days. 3. heart rate recorded to be 155 bpm.
--- NOTE | 2022-07-31 11:13 | US_ITS ---
PROCEDURE INFORMATION: Exam: US Retroperitoneal; Complete; Kidneys and Bladder Exam date and time: 07/31/2022 1:15 PM Age: 22 years old Clinical indication: Abdominal pain; Acute; ; Additional info: Low back and low abdominal pain, bilat flank pain TECHNIQUE: Imaging protocol: Real-time ultrasound of the retroperitoneum with image documentation. Complete exam focused on the kidneys and bladder. Total images: 35 COMPARISON: US OB >= 14 WEEKS FETUS 07/31/2022 12:43 PM FINDINGS: Right kidney: Right kidney measures 11.1 x 4.8 x 6.6 cm. Left kidney: Left kidney measures 11.6 x 5.6 x 5.4 cm. Spleen: Spleen measures 15.4 cm. Urinary bladder: Unremarkable. IMPRESSION: 1. No renal calcifications, obstructive uropathy or masses. 2. Spleen measures 15.4 cm.
[2022-07-31 11:55] LABS: Basophils % 0.5 % (0.1-2.0); Eosinophils # 0.2 K/mm3 (0.0-0.4); Eosinophils % 2.2 % (0.1-12.0); Hematocrit 35.6 % (37.0-47.0); Hemoglobin 11.9 g/dL (12.2-16.2); Lymphocytes % 15.2 % (10-50); Mean Corpuscular HGB Conc 33.4 g/dL (31.8-35.4); Mean Corpuscular Hemoglobin 30.6 pg (27.0-31.2); Mean Corpuscular Volume 91.6 fl (81-99); Mean Platelet Volume 8.7 fl (7.4-10.4); Monocytes # 0.3 K/mm3 (0.1-1.0); Neutrophils # 5.1 K/mm3 (1.8-7.8); Neutrophils % 78.1 % (37.0-80.0); Platelet Count 192 K/mm3 (142-424); Red Blood Count 3.89 M/mm3 (4.20-5.40); Red Cell Distribution Width 13.3 % (11.5-17.5); White Blood Count 6.6 K/mm3 (4.8-10.8)
[2022-07-31 12:00] LABS: Chloride 105 mmol/L (98-107); Sodium 137 mmol/L (136-145)
[2022-07-31 12:03] LABS: Alanine Aminotransferase 22 U/L (12-78); Albumin Level 3.6 g/dl (3.5-5.0); Albumin/Globulin Ratio 1.2 (1.1-1.8); Alkaline Phosphatase 75 U/L (38-126); Aspartate Amino Transferase 28 U/L (14-36); Bilirubin,Total 0.6 mg/dl (0.2-1.3); Blood Urea Nitrogen 5 mg/dl (7-17); Calcium 8.5 mg/dl (8.4-10.2); Carbon Dioxide 25 mmol/L (22.0-30.0); Creatinine Clearance Estimated 253 mL/min (50-200); Estimated Glomerular Filt Rate 152 ml/min (>60); GFR (African American) 183 ML/MIN (>60); Globulin 3.1 g/dL (1.3-3.2); Glucose 81 mg/dl (74-100); Total Protein,Serum 6.7 g/dl (6.3-8.2)
--- NOTE | 2022-07-31 15:08 | PC.NURSE ---
prescription for vistaril 25mg po q 8hrs prn pain qty 20 called into [facility] pharmacy per Dr Alvarez's orders.
[2022-08-03 22:10] LABS: Trichomonas Vaginalis, NAA NEGATIVE
[2022-08-03 22:35] LABS: Neisseria gonorrhoeae, NAA Negative (Negative)
== END 2022-07-31 15:24 | disposition home or self-care (01) ==
LOC: UTC 09:02 → OBOUT 09:09 → OB 09:10
PROVIDERS: PCP Family Medicine; Visit Provider Obstetrics & Gynecology
DX: O26.893 Other specified pregnancy related conditions, third trimester (principal); Z3A.29 29 weeks gestation of pregnancy
CPT/HCPCS: 36415; 76770; 76805; 80053; 80305; 81001; 85025; 87086; 87491; 87591; 87661

== ENCOUNTER → 2022-08-03 09:21 | Outpatient (CLI) | payer SELFPAY | PROVIDERS: PCP Family Medicine; Visit Provider Obstetrics & Gynecology | DX: M54.9 Dorsalgia, unspecified (principal); Z34.90 Encounter for supervision of normal pregnancy, unspecified, unspecified trimester; Z87.898 Personal history of other specified conditions | CPT/HCPCS: 36415; 87040 ==

== ENCOUNTER → 2022-09-29 22:31 | Outpatient (CLI) | payer SELFPAY | PROVIDERS: PCP Obstetrics & Gynecology; Visit Provider Obstetrics & Gynecology | DX: Z34.90 Encounter for supervision of normal pregnancy, unspecified, unspecified trimester (principal) | CPT/HCPCS: 86403 ==

== ENCOUNTER 2022-10-09 19:51 | Emergency (ER) | payer SELFPAY ==
[2022-10-09 20:05] VITALS: BP 159/87; PULSE 122; RESP 18; TEMP 36.9; O2SAT 98; BMI 30.7
--- NOTE | 2022-10-09 20:06 | US_ITS ---
PROCEDURE INFORMATION: Exam: US Pelvis Complete, Transabdominal and US Duplex Artery or Vein, Ovaries, Limited Exam date and time: 10/09/2022 8:42 PM Age: 22 years old Clinical indication: Pelvic pain; Additional info: Vag delivery 2 days ago, abd pain today TECHNIQUE: Imaging protocol: Real-time transabdominal pelvic ultrasound with image documentation. Real-time duplex ultrasound scan of the arterial or venous flow of the ovaries with B-mode, color Doppler flow and spectral waveform analysis. Complete Pelvis, Limited Duplex. Duplex exam was performed to evaluate for torsion and other vascular conditions. COMPARISON: US OB >= 14 WEEKS FETUS 31/07/2022 12:43 FINDINGS: Uterus: There is mild irregularity of the endometrium near the fundus of indeterminate significance. Endometrium is 1.7 cm in thickness, which is the at the upper limits of normal. Uterus is large in size consistent with recent gravid status. Small amount of blood in the endometrial canal is noted. Uterus measures 12.3 x 7 x 11.9 cm. Right ovary/adnexa: Unremarkable right ovarian venous waveforms. Right ovary measures 3.7 x 1.6 x 2.4 cm. Left ovary/adnexa: Unremarkable left ovarian arterial waveforms. Left ovary measures 3 x 2.1 x 2 cm. Intraperitoneal space: No free fluid. Urinary bladder: Normal. IMPRESSION: There is mild irregularity of the endometrium near the fundus of indeterminate significance. A small amount of retained products of conception cannot be entirely excluded.
--- NOTE | 2022-10-09 20:19 | HMH.EDGENADL ---
Discharge Plan Disposition Patient Disposition: Home, Self-Care Condition: Good Referrals Follow up/Referrals: Fredi Botello MD [Primary Care Provider] - See instructions Clinical Impressions Clinical Impression: Abdominal pain Instructions Patient Instructions: Acute Abdominal Pain Print Language Print Language: Polish Discharge ED Provider: Heron Ramos General Adult HPI General Chief complaint: Urogenital-Female Stated complaint: delivered 10/07 hilary upper stomach Time Seen by Provider: 10/09/22 22:22 Mode of Arrival: Ambulatory Source of Information: Patient Limitations: No Limitations Description of Symptoms (Recalled from ER Triage Doc. by RN): Pt is two days post vaginal delivery at home with roll cutting operator. States that she is para 4 grava 4. States the delivery was uncomplicated but she began to have severe upper abdominal pain that comes in waves this morning. States that it hull with urination and is typically a stinging sensation. Pt states she has had a bowel movement since the delivery without complication and has urinated well, with the exception of the burning. History of Present Illness HPI narrative: Patient presents to the emergency department with abdominal pain. She is a G4, P4. She is 2 days from her most recent delivery. This was a home delivery with a roll cutting operator. She states she had an uncomplicated and delivery. She comes in and describes lower abdominal tenderness with associated dysuria, frequency. Denies any fever but does describe chills. Denies any significant heavy vaginal bleeding. Describes some generalized malaise. Related Data Allergies Allergy/AdvReac Type Severity Reaction Status Date / Time trazodone [TRAZODONE] Allergy Intermediate Verified 09/29/22 10:08 [facility] Disclaimer: The information contained in this section may have been updated after the patient was seen, as this information can be updated by other users. Medical History Anxiety Depression Family History Other No significant family history Social History Smoking Status: Never smoker alcohol intake: never substance use type: denies use current occupational status: other Travel in the last 8 weeks: None household members: spouse and children housing: house ROS Obtained: Yes All systems reviewed & no additional complaints except as documented Constitutional Constitutional: Reports chills and Reports fatigue Gastrointestinal Gastrointestingal: Reports abdominal pain and nausea Endocrine Endocrine: Reports fatigue Physical Exam General General appearance: alert, in no apparent distress and other (Slightly uncomfortable appearing) Eye Eye exam: Present normal appearance, PERRL and EOMI Respiratory Respiratory exam: Present normal lung sounds bilaterally Cardiovascular Cardiovascular exam: Present normal rhythm, tachycardia and normal heart sounds Abdominal Exam Abdominal exam: Present soft, tenderness (Significant bilateral lower quadrant abdominal tenderness with localization to the suprapubic region.) and guarding Extremities Exam Extremities exam: Present normal inspection and full ROM Neurological Exam Neurological exam: Present alert and oriented X3 Psychiatric Psychiatric exam: Present normal affect and normal mood Medical Decision Making Medical Records Medical records reviewed: Yes I reviewed the patient's medical records. Soham Inquiry Pt receiving controlled substance: No Vital Signs: 10/09/22 20:05 Temperature 98.4 F Temperature Source Oral Pulse Rate [Apical] 122 H Respiratory Rate 18 Blood Pressure [Right Arm] 159/87 H Blood Pressure Mean [Right Arm] 111 Blood Pressure Source [Right Arm] Automatic Cuff Blood Pressure Position [Right Arm] Sitting 02 Sat by Pulse Oximetry 98 Oxygen Deliv
[2022-10-09 20:21] LABS: Microscopic, Urine URINE MICROSCOPIC (MICROSCOPIC)
[2022-10-09 20:22] LABS: Basophils # 0.1 K/mm3 (0-0.2); Basophils % 1.2 % (0.1-2.0); Eosinophils # 0.2 K/mm3 (0.0-0.4); Eosinophils % 3.1 % (0.1-12.0); Hemoglobin 11.8 g/dL (12.2-16.2); Lymphocytes # 1.1 K/mm3 (0.7-4.5); Lymphocytes % 14.7 % (10-50); Mean Corpuscular HGB Conc 33.7 g/dL (31.8-35.4); Mean Corpuscular Hemoglobin 30.3 pg (27.0-31.2); Mean Platelet Volume 9.5 fl (7.4-10.4); Monocytes # 0.3 K/mm3 (0.1-1.0); Monocytes % 4.4 % (1.7-9.3); Neutrophils # 5.9 K/mm3 (1.8-7.8); Neutrophils % 76.6 % (37.0-80.0); Platelet Count 143 K/mm3 (142-424); Red Blood Count 3.89 M/mm3 (4.20-5.40); Red Cell Distribution Width 14.1 % (11.5-17.5); White Blood Count 7.8 K/mm3 (4.8-10.8)
[2022-10-09 20:22] LABS: Appearance,Urine CLEAR (Clear); Bilirubin,Urine Negative (Negative); Blood, Urine TRACE-I (Negative); Color,Urine YELLOW (Yellow); Glucose,Urine (UA) Negative (Negative); Ketones,Urine Negative (Negative); Leukocyte Esterase,Urine TRACE (Negative); Nitrate,Urine Negative (Negative); Protein,Urine Negative (Negative); Specific Gravity, Urine <= 1.005 (1.005-1.030); Urobilinogen,Urine 0.2 EU/dl (0.2)
[2022-10-09 20:28] LABS: Alanine Aminotransferase 40 U/L (12-78); Albumin Level 3.4 g/dl (3.5-5.0); Albumin/Globulin Ratio 1.3 (1.1-1.8); Alkaline Phosphatase 108 U/L (38-126); Anion Gap 8.5 mEq/L (5-15); Aspartate Amino Transferase 46 U/L (14-36); Bilirubin,Total 0.5 mg/dl (0.2-1.3); Blood Urea Nitrogen 4 mg/dl (7-17); Calcium 8.4 mg/dl (8.4-10.2); Carbon Dioxide 26 mmol/L (22.0-30.0); Chloride 105 mmol/L (98-107); Creatinine Clearance Estimated 287 mL/min (50-200); Estimated Glomerular Filt Rate 196 ml/min (>60); GFR (African American) 237 ML/MIN (>60); Globulin 2.7 g/dL (1.3-3.2); Glucose 103 mg/dl (74-100); Potassium 3.5 mmoL/L (3.5-5.1); Sodium 136 mmol/L (136-145); Total Protein,Serum 6.1 g/dl (6.3-8.2)
--- NOTE | 2022-10-09 20:38 | PC.NURSE ---
soil science technical officer at bedside to take pt for u/s.
[2022-10-09 20:40] LABS: Squamous Epithelial Cell,Urine Occasional #/hpf (0-5)
[2022-10-09 20:41] LABS: RBC,Urine Occasional #/hpf (0-3); WBC,Urine Occasional #/hpf (0-3)
[2022-10-09 20:45] LABS: Procalcitonin 0.059 ng/mL (0.0-2.0)
--- NOTE | 2022-10-09 21:05 | PC.NURSE ---
pt back at bedside, U/S tech given MD a verbal prelim report.
--- NOTE | 2022-10-09 21:16 | CT_ITS ---
PROCEDURE INFORMATION: Exam: CT Abdomen And Pelvis With Contrast Exam date and time: 10/09/2022 9:39 PM Age: 22 years old Clinical indication: Abdominal pain; Additional info: Abd pain, S/P vag deliver 2 days ago TECHNIQUE: Imaging protocol: Computed tomography of the abdomen and pelvis with contrast. Radiation optimization: All CT scans at this facility use at least one of these dose optimization techniques: automated exposure control; mA and/or kV adjustment per patient size (includes targeted exams where dose is matched to clinical indication); or iterative reconstruction. Contrast material: ISOVUE; Contrast volume: 75 ml; Contrast route: IV; REPORTING DATA: Count of CT and Cardiac NM exams in prior 12 months: This patient has received 0 known CTs and 0 known cardiac nuclear medicine studies in the 12 months prior to the current study. COMPARISON: ABDPELW/O CT ABD PELVIS W/O CONTRAST 01/20/2017 09:03 FINDINGS: Lungs: Unchanged 4 mm right lower lobe pulmonary nodule. Unchanged 3 mm left lower lobe pulmonary nodule. No follow-up imaging is warranted. Minimal bibasilar atelectasis. Liver: Normal. No mass. Gallbladder and bile ducts: Normal. No calcified stones. No ductal dilation. Pancreas: Normal. No ductal dilation. Spleen: Upper limits of normal spleen size. Adrenal glands: Normal. No mass. Kidneys and ureters: Normal. No hydronephrosis. Stomach and bowel: Unremarkable. No obstruction. No mucosal thickening. Appendix: No evidence of appendicitis. Intraperitoneal space: Unremarkable. No free air. No significant fluid collection. Vasculature: Unremarkable. No abdominal aortic aneurysm. Lymph nodes: Unremarkable. No enlarged lymph nodes. Urinary bladder: Unremarkable as visualized. Reproductive: The uterus is enlarged consistent with recent gravid status. There is a small amount of blood in the endometrial canal. Bones/joints: Unremarkable. No acute fracture. Soft tissues: Tiny fat containing umbilical hernia. IMPRESSION: The uterus is enlarged consistent with recent gravid status. There is a small amount of blood in the endometrial canal. Otherwise, no acute findings.
[2022-10-09 21:30] VITALS: BP 121/62; PULSE 101; O2SAT 99
--- NOTE | 2022-10-09 21:44 | PC.NURSE ---
pt back from ct scan
[2022-10-09 22:01] VITALS: BP 130/72; PULSE 93; O2SAT 98
[2022-10-09 22:30] VITALS: BP 120/71; BP 121/71; PULSE 85; PULSE 87; RESP 19; TEMP 37; O2SAT 100; O2SAT 98
== END 2022-10-09 23:05 | disposition home or self-care (01) ==
PROVIDERS: Emergency Provider Emergency Medicine; PCP Family Medicine
DX: O99.63 Diseases of the digestive system complicating the puerperium (principal); R10.10 Upper abdominal pain, unspecified
CPT/HCPCS: 74177; 76856; 80053; 81001; 83605; 84145; 85025; 96360; 96374; 96375; 99285; J2405; Q9967

== ENCOUNTER → 2022-10-12 12:03 | Outpatient (CLI) | payer SELFPAY ==
[2022-10-12 12:44] LABS: Basophils # 0.1 K/mm3 (0-0.2); Basophils % 0.9 % (0.1-2.0); Eosinophils # 0.3 K/mm3 (0.0-0.4); Eosinophils % 4.4 % (0.1-12.0); Hematocrit 36.7 % (37.0-47.0); Hemoglobin 12.2 g/dL (12.2-16.2); Lymphocytes % 15.5 % (10-50); Mean Corpuscular HGB Conc 33.2 g/dL (31.8-35.4); Mean Corpuscular Volume 90.2 fl (81-99); Mean Platelet Volume 8.7 fl (7.4-10.4); Monocytes # 0.3 K/mm3 (0.1-1.0); Monocytes % 3.7 % (1.7-9.3); Neutrophils % 75.4 % (37.0-80.0); Platelet Count 179 K/mm3 (142-424); Red Blood Count 4.07 M/mm3 (4.20-5.40); White Blood Count 6.6 K/mm3 (4.8-10.8)
[2022-10-12 13:27] LABS: Alanine Aminotransferase 34 U/L (12-78); Albumin Level 3.3 g/dl (3.5-5.0); Albumin/Globulin Ratio 1.2 (1.1-1.8); Alkaline Phosphatase 96 U/L (38-126); Anion Gap 3.8 mEq/L (5-15); Aspartate Amino Transferase 27 U/L (14-36); Bilirubin,Total 0.5 mg/dl (0.2-1.3); Blood Urea Nitrogen 7 mg/dl (7-17); Calcium 8.2 mg/dl (8.4-10.2); Carbon Dioxide 30 mmol/L (22.0-30.0); Chloride 106 mmol/L (98-107); Estimated Glomerular Filt Rate 123 ml/min (>60); GFR (African American) 149 ML/MIN (>60); Globulin 2.7 g/dL (1.3-3.2); Glucose 83 mg/dl (74-100); Potassium 3.8 mmoL/L (3.5-5.1); Sodium 136 mmol/L (136-145)
== END ==
LOC: LAB 12:03
PROVIDERS: PCP Family Medicine; Visit Provider Obstetrics & Gynecology
DX: R10.9 Unspecified abdominal pain (principal)
CPT/HCPCS: 36415; 80053; 85025